=== PATIENT | male | born 1980 | race African-American/Black ===

== ENCOUNTER 2017-09-10 17:22 | Emergency (ER) | payer BC ==
[~2017-09-10] VITALS: Ht 185.4 cm; Wt 95.3 kg
[~2017-09-10 17:22] MED LIST: FLEXERIL PO; MEDROLDOSEPACK PO; NAPROSYN500 MG PO
[2017-09-10] MEDS ORDERED: MEDROLDOSEPACK PO (18:24)
[2017-09-10 18:45] VITALS: BP 122/79
== END 2017-09-10 18:46 | disposition home or self-care (01) ==
LOC: M.ERS 17:22
DX: M25.531 Pain in right wrist (principal)